=== PATIENT | male | born 1955 | race Caucasian/White ===

== ENCOUNTER → 2021-06-16 | Outpatient (CLI) | payer OTHER ==
[2021-06-16 16:00] LABS: Albumin, Blood 3.1 g/dL (3.4-5.0); Albumin/Globulin Ratio 0.8 (0.8-1.8); Bilirubin, Total 0.5 mg/dL (0.1-1.0); Calcium, Blood 8.4 mg/dL (8.5-10.1); Creatinine, Blood 2.05 mg/dL (0.60-1.20); Globulin, Blood 3.9 g/dL (2.2-4.0); Potassium, Blood 4.1 mmol/L (3.5-5.5)
== END | disposition home or self-care (01) ==
LOC: LAB SHORT 13:31
PROVIDERS: Family Medicine
DX: N18.9 Chronic kidney disease, unspecified (principal)
CPT/HCPCS: 80053

== ENCOUNTER 2021-12-16 09:51 | Inpatient (IN) | payer OTHER ==
[~2021-12-16] VITALS: Ht 188 cm; Wt 150.2 kg
[2021-12-16 10:26] LABS: BASOPHILS ABSOLUTE AUTO 0.03 K/mm3 (0.00-0.23); BASOPHILS PERCENT AUTO 0 % (0-2); EOSINOPHILS ABSOLUTE AUTO 0.03 K/mm3 (0.00-0.68); EOSINOPHILS PERCENT AUTO 0 % (0-6); Hematocrit 45.7 % (37.0-53.0); Hemoglobin 13.2 g/dL (13.5-17.5); IMMATURE GRAN ABSOLUTE AUTO 0.06 K/mm3 (0.00-0.10); IMMATURE GRAN PERCENT AUTO 0 % (0-1); LYMPHOCYTES ABSOLUTE AUTO 0.84 K/mm3 (0.84-5.20); LYMPHOCYTES PERCENT AUTO 5 % (21-46); MONOCYTES ABSOLUTE AUTO 1.09 K/mm3 (0.16-1.47); MONOCYTES PERCENT AUTO 7 % (4-13); Mean Corpuscular HGB 26.9 pg (26.0-34.0); Mean Corpuscular HGB Conc 28.9 g/dL (31.5-36.5); Mean Corpuscular Volume 93 fL (80-100); Mean Platelet Volume 10.7 fL (9.1-12.4); NEUTROPHILS ABSOLUTE AUTO 14.79 K/mm3 (1.96-9.15); NEUTROPHILS PERCENT AUTO 88 % (41-73); Platelet Count 247 K/mm3 (150-400); RDW Standard Deviation 62.1 fL (35.1-46.3); White Blood Cell Count 16.84 K/mm3 (4.00-11.30)
[2021-12-16 10:41] LABS: Albumin, Blood 3.5 g/dL (3.4-5.0); Albumin/Globulin Ratio 0.8 (0.8-1.8); Bilirubin, Total 0.8 mg/dL (0.1-1.0); Bun/Creatinine Ratio 19.3 (12.0-20.0); Creatinine, Blood 2.12 mg/dL (0.60-1.20); Globulin, Blood 4.5 g/dL (2.2-4.0); Potassium, Blood 5.8 mmol/L (3.5-5.5)
[2021-12-16] MEDS ORDERED: Amiodarone HCl200 MG PO (12:50)
[2021-12-16] MEDS ORDERED: ATORVASTATIN CA80 M1 PO (12:52)
[2021-12-16] MEDS ORDERED: Celexa20 MG PO (12:53)
[2021-12-16] MEDS ORDERED: EPLE25 PO (12:54)
[2021-12-16] MEDS ORDERED: CLOP75 PO (12:55)
[2021-12-16] MEDS ORDERED: ELIQUIS5 M3 PO (12:56)
[2021-12-16] MEDS ORDERED: METO25 PO (12:57)
[2021-12-16] MEDS ORDERED: ISODIN20 PO (12:58)
[2021-12-16] MEDS ORDERED: JARDIANCE10 MG PO (12:58)
[2021-12-16] MEDS ORDERED: HYDRA25 PO (12:59)
[2021-12-16] MEDS ORDERED: POTCHL20ER PO (13:01)
[2021-12-16] MEDS ORDERED: TORSE20 PO (13:35)
--- NOTE | 2021-12-16 17:44 | NUR ---
PT PASSED BEDSIDE SWALLOW EVAL. HE WAS ABLE TO BOTH DRINK WATER AND EAT SPOONFULS OF APPLESAUCE WITHOUT ISSUES, HE DOES HOWEVER HAVE A MUFFLED ABLMOST SLURRING VOICE WHEN HE SPEAKS AND HAVE SAID THAT HES HAD TROUBLE WITH CHOKING AT HOME. PT MEAL WILL BE ORDERED PUREE UNTIL HE CAN HAVE A SWALLOW EVAL
--- NOTE | 2021-12-16 17:55 | NUR ---
SHIFT SUMMARY PT IS RESTING IN BED SITTING ALL THE WAY UPRIGHT/ WE ARE TRYING TO GET THE PT A BARIATRIC BED SO THAT HE CAN BE MORE COMFORTABLE. PT IS ON BIPAP SATTING AT 89%. HE HAS BEEN PLACED ON PUREED DIET UNTIL HE CAN BE EVALUATED BY ST BUT HE PASSED A BEDSIDE SWALLOW EVAL. HE HAS COMPLAINED OF LOWER BACK PAIN AND WAS MEDICATED PER EMAR. WILL CONTINUE TO MONITOR
[2021-12-16 22:05] LABS: Bun/Creatinine Ratio 17.1 (12.0-20.0); Calcium, Blood 8.4 mg/dL (8.5-10.1); Creatinine, Blood 2.34 mg/dL (0.60-1.20); Potassium, Blood 4.6 mmol/L (3.5-5.5)
[2021-12-17 04:47] LABS: BASOPHILS ABSOLUTE AUTO 0.04 K/mm3 (0.00-0.23); BASOPHILS PERCENT AUTO 0 % (0-2); EOSINOPHILS ABSOLUTE AUTO 0.05 K/mm3 (0.00-0.68); EOSINOPHILS PERCENT AUTO 0 % (0-6); Hemoglobin 12.3 g/dL (13.5-17.5); IMMATURE GRAN ABSOLUTE AUTO 0.09 K/mm3 (0.00-0.10); IMMATURE GRAN PERCENT AUTO 1 % (0-1); LYMPHOCYTES ABSOLUTE AUTO 1.13 K/mm3 (0.84-5.20); LYMPHOCYTES PERCENT AUTO 7 % (21-46); MONOCYTES ABSOLUTE AUTO 1.48 K/mm3 (0.16-1.47); MONOCYTES PERCENT AUTO 9 % (4-13); Mean Corpuscular HGB 27.2 pg (26.0-34.0); Mean Corpuscular HGB Conc 28.6 g/dL (31.5-36.5); Mean Corpuscular Volume 95 fL (80-100); Mean Platelet Volume 10.9 fL (9.1-12.4); NEUTROPHILS ABSOLUTE AUTO 13.75 K/mm3 (1.96-9.15); NEUTROPHILS PERCENT AUTO 83 % (41-73); Platelet Count 201 K/mm3 (150-400); RDW Coefficient Variation 17.5 % (11.7-14.2); RDW Standard Deviation 61.1 fL (35.1-46.3); Red Blood Cell Count 4.53 M/mm3 (4.30-5.90); White Blood Cell Count 16.54 K/mm3 (4.00-11.30)
[2021-12-17 05:08] LABS: Bun/Creatinine Ratio 18.9 (12.0-20.0); Calcium, Blood 8.7 mg/dL (8.5-10.1); Creatinine, Blood 2.33 mg/dL (0.60-1.20); Potassium, Blood 4.4 mmol/L (3.5-5.5)
--- NOTE | 2021-12-17 06:32 | NUR ---
SHIFT SUMMARY: PATIENT REPORTS CHRONIC BACK AND R RIB PAIN. TRAMADOL IS EFFECTIVE FOR PAIN CONTROL. UP TO THE BATHROON WITH ASSIST OF 1 AND FWW. GENERALIZED WEAKNESS OBSERVED. PATIENT REFUSES TO PUT HOSPITAL GOWNED ON AND REMAINS IN STREET CLOTHES. 02 IS AT 6L NC WHILE AWAKE. CPAP WAS USED FOR A SHORT TIME WITH A 5L BLEED IN, CONT. PULSE OX IS ON. MAINTAINING SATS BETWEEN 93-89%. UP TO 7L WITH ACTIVITY. PATIENT IS CONTINUOSLY PULLING TELI OFF, NO EVENTS REPORTED. DR MENON IS NOTIFIED AND ORDER TO DC TELI IS OBTAINED.
--- NOTE | 2021-12-17 18:10 | NUR ---
SHIFT SUMMARY PT IS SLEEPING WHILE WEARING HIS CPAP. HE HAS NOT TOLERATED IT WELL WITH IS OFF. HE IS NOT ABLE TO MAINTAIN HIS OWN O2 SATS ON NASAL CANULA ALONE AND HIS MENTATION HAS CHANGED GREATLY WITH IT OFFF. HE IS CONFUSED, SLOW TO PROCESS, AND DIFFICULTE TO AROUND AND HAD BEEN FALLING ASLEEP AT THE BEDSIDE. HE HAS NOT EATEN LUNCH OR DINNER TODAY HE GETS VERY CONFUSED WHEN HE TAKES OFF HIS BIPAP. HE IS CURRENTLY SATTING 93%. HE RECIEVED A FLUID BOLUS THIS AFTERNOON OF 250 TO HELP WITH A SOFT BP. SEVERAL DOSES OF HYDRALAZINE HELD THIS SHIFT. DR INSTRUCT TO NOT LET PT REMOVE HIS BIPAP TONIGHT. ECHO CARDIOGRAM SCHEDULED. DR WILL DETERMINE MORE ABOUT PTS STATUS WITH THOSE RESULTS.WILL CONTINUE TO MONITOR.
[2021-12-17 22:48] LABS: PCO2 Venous 87.8 mmHg (38-42); pH Blood Venous 7.19 (7.34-7.37)
[2021-12-17 22:49] LABS: Base Excess Venous 5.7 mmol/L; Bicarbonate Venous 26.8 mmol/L (24.0-30.0); PO2 Venous 53.5 mmHg (38-42)
--- NOTE | 2021-12-17 23:25 | NUR ---
MENTATION CHANGES: PATIENT IS LETHARGIC TONIGHT. A&O TO SELF ONLY. ON BIPAP WITH 7L BLEED IN BUT RESTLESS WITH LEAK ALARMS. REMOVED BIPAP TO SPEAK WITH AND SWITCHED TO NC @ 7L, SAT IS 93%. MORTGAGE FUNDER MASON COLE IS NOTIFIED AND ORDER FOR STAT VENOUS ABG. CRITICAL PH OF 7.19 AND C02 AT 87.8 IS CALLED TO MASON COLE. ORDER TO TRANSFER PT TO PCU IS OBTAINED.
--- NOTE | 2021-12-17 23:58 | NUR ---
TRANSFER: REPORT WAS CALLED TO CLINICAL RESEARCH DIRECTORJOE FOOTE AND PATIENT WAS TRANFERED TO PCU 1, WITH RT ESCORT.
--- NOTE | 2021-12-18 01:33 | NUR ---
ASSUMPTION OF CARE: ASSUMED CARE FROM MARIYA ON MED FLOOR AT 2355. PATIENT ARRIVED IN AIR BED AND BEDS WERE SWITCHED WITH MED FLOOR. PATIENT A&O X1. RT AT BEDSIDE FOR BIPAP SETTINGS. PATIENT WEAK AND LETHARGIC. MEDS GIVEN PER EMAR. PATIENT ASLEEP NOW WITH 02 SATS >90%.
[2021-12-18 03:02] LABS: Base Excess Venous 6.1 mmol/L; Bicarbonate Venous 27.2 mmol/L (24.0-30.0); PCO2 Venous 77.4 mmHg (38-42); PO2 Venous 38.6 mmHg (38-42)
[2021-12-18 03:03] LABS: pH Blood Venous 7.24 (7.34-7.37)
[2021-12-18 07:02] LABS: Source, Urine Foley catheter
[2021-12-18 07:09] LABS: Appearance, Urine Clear (Clear); Bilirubin, Urine Neg (Neg); Blood, Urine 1+ (Neg); Color, Urine Yellow (P-Yellow); Glucose Qualitative, Urine 3+ (Neg); Ketones, Urine Neg (Neg); Leukocyte Esterase, Urine Neg (Neg); Nitrite, Urine Neg (Neg); Protein, Urine 1+ (Neg); Urobilinogen, Urine NORM (Normal)
--- NOTE | 2021-12-18 07:16 | NUR ---
SHIFT SUMMARY: PATIENT VSS UNTIL 0500 WHEN PATIENT PULLED BIPAP MASK OFF. PATIENT ANXIOUS AT 0600 - SECURED XANAX ORDER AND PLACED STORY WHICH RELIEVED HIS ANXIOUSNESS. MAINTAINED O2 SATS >92% T/O SHIFT WITH BIPAP IN PLACE AT 7-9L BLEED IN. PATIENT HAS REDNESS ON COCCYX, WAS GIVEN BEDBATH WHEN BED LINENS CHANGED AND ATTENDS PLACED. PATIENT CANNOT FOLLOW DIRECTIONS AND IS STILL VERY CONFUSED AND UNSTEADY ON FEET. REPORT GIVEN TO BERKLEY SALEH RN.
[2021-12-18 07:20] LABS: White Blood Cells, Urine 0-2 /hpf (0-5)
[2021-12-18 07:21] LABS: Bacteria Rare /hpf; Hyaline Casts 0-2 /lpf (0-2); Squamous Epithelial Cells Rare /hpf (Few)
[2021-12-18 08:12] LABS: Base Excess Venous 2.6 mmol/L; Bicarbonate Venous 25.2 mmol/L (24.0-30.0); PCO2 Venous 69.1 mmHg (38-42); PO2 Venous 62.1 mmHg (38-42); pH Blood Venous 7.24 (7.34-7.37)
[2021-12-18 08:55] LABS: BASOPHILS ABSOLUTE AUTO 0.01 K/mm3 (0.00-0.23); BASOPHILS PERCENT AUTO 0 % (0-2); EOSINOPHILS PERCENT AUTO 0 % (0-6); Hematocrit 40.6 % (37.0-53.0); Hemoglobin 11.8 g/dL (13.5-17.5); IMMATURE GRAN ABSOLUTE AUTO 0.09 K/mm3 (0.00-0.10); IMMATURE GRAN PERCENT AUTO 1 % (0-1); LYMPHOCYTES ABSOLUTE AUTO 0.22 K/mm3 (0.84-5.20); LYMPHOCYTES PERCENT AUTO 3 % (21-46); MONOCYTES ABSOLUTE AUTO 0.11 K/mm3 (0.16-1.47); MONOCYTES PERCENT AUTO 1 % (4-13); Mean Corpuscular HGB 27.4 pg (26.0-34.0); Mean Corpuscular HGB Conc 29.1 g/dL (31.5-36.5); Mean Corpuscular Volume 94 fL (80-100); Mean Platelet Volume 10.8 fL (9.1-12.4); NEUTROPHILS ABSOLUTE AUTO 7.73 K/mm3 (1.96-9.15); NEUTROPHILS PERCENT AUTO 95 % (41-73); Platelet Count 183 K/mm3 (150-400); RDW Coefficient Variation 17.2 % (11.7-14.2); Red Blood Cell Count 4.31 M/mm3 (4.30-5.90); White Blood Cell Count 8.16 K/mm3 (4.00-11.30)
[2021-12-18 09:20] LABS: Alanine Aminotransfer (ALT/SGP 49 U/L (12-78); Albumin, Blood 3.1 g/dL (3.4-5.0); Albumin/Globulin Ratio 0.8 (0.8-1.8); Alk Phos 80 U/L (50-136); Anion Gap 1 mmol/L (6-16); Aspartate Aminotrans (AST/SGOT 35 U/L (12-37); Bilirubin, Total 0.6 mg/dL (0.1-1.0); Blood Urea Nitrogen 56 mg/dL (8-24); Bun/Creatinine Ratio 22.8 (12.0-20.0); CO2, Blood 31 mmol/L (21-32); Calcium, Blood 8.8 mg/dL (8.5-10.1); Chloride, Blood 99 mmol/L (98-108); Creatinine, Blood 2.46 mg/dL (0.60-1.20); Glomerular Filtration Rate 26 (60-); Glucose, Blood 233 mg/dL (70-99); Phosphorus, Blood 6.1 mg/dL (2.5-4.9); Potassium, Blood 4.7 mmol/L (3.5-5.5); Sodium, Blood 131 mmol/L (136-145); Total Protein, Blood 7.1 g/dL (6.4-8.2)
--- NOTE | 2021-12-18 11:09 | NUR ---
AM NOTE: PATIENT ALERT TO SELF. STATES HE IS IN [place] AND IS UNABLE TO TELL THIS RN WHY HE IS HERE. OVERALL WEAK. NOT ABLE TO HOLD ARMS UP, VERY SLEEPY. REPEATING THE NUMBERS "96.81" THIS AM. PERRLA. INTERMITTENT WITH FOLLOWING COMMANDS. TELE SHOWING PACED RHYTHM WITH HR 80'S. DENIES CHEST PAIN/PRESSURE. PACER TO LEFT CHEST WALL. VITAL SIGNS STABLE. ON BIPAP THIS AM SETTINGS - 18/8 WITH 8L BLEEDING IN SATING MID 90'S. SPOKE WITH DR. SEAMAN REGARDING BIPAP AND VBG RESULTS. RT IN TO ADJUST BIPAP. PLAN TO RECHECK VBG LATER THIS AFTERNOON PER DR. SEAMAN WELL MONITOR OTHER LABS. OFF BIPAP AND ON 4L 02 BASELINE FOR MORN MEDS AND SPEECH THERAPY. TO SLEEPY TO EAT BREAKFAST. DENIES ABDOMINAL PAIN/NAUSEA. STORY CATH IN PLACE DRAINING KATIE COLORED URINE TO GRAVITY. ATTENDS IN PLACE. ORAL CARE Q4 AND Q2 TURNING. SLEEPING ON AND OFF. ANTIBIOTICS INFUSED THIS AM. CALL LIGHT IN REACH. WILL CONTINUE TO MONITOR.
[2021-12-18 12:05] LABS: PCO2 Arterial 67.1 mmHg (35-45); PO2 Arterial 60.2 mmHg (80-100); pH Blood Arterial 7.27 (7.35-7.45)
--- NOTE | 2021-12-18 12:10 | NUR ---
UPDATE: CALL PLACED TO DR. SEAMAN TO UPDATE ON ABG RESULTS. SPOKE WITH RT. NO ADJUSTMENTS TO BIPAP AT THIS TIME. O2 BLEED IN BROUGHT DOWN FROM 8L TO 4L AT THIS TIME SATING LOW 90'S. PATIENT MORE ALERT AND AWAKE ABLE TO PARTICIPATE IN SPEECH THERAPY AND TALK WITH AT BEDSIDE. PATIENT FIXATED ON APPOINTMENTS HE STATES HE HAS TOMORROW. CALL PLACED TO COAT TAILOR, ECHO DONE YESTERDAY AND RESULTS PENDING. SPEECH THERAPY ORDERS - REG DIET WITH THIN LIQUIDS AND FEEDER AT THIS TIME DUE TO WEAKNESS. WILL CONTINUE TO MONITOR.
--- NOTE | 2021-12-18 13:37 | NUR ---
UPDATE: CALL PLACED TO DR. HERRERA TO UPDATE ON BNP RESULTS. NO NEW ORDERS AT THIS TIME. PATIENT REMAINS ASLEEP. VITAL SIGNS STABLE. WILL CONTINUE TO MONITOR.
[2021-12-18 17:26] LABS: Base Excess Venous 6.5 mmol/L; Bicarbonate Venous 28.7 mmol/L (24.0-30.0); pH Blood Venous 7.36 (7.34-7.37)
[2021-12-18 17:27] LABS: PCO2 Venous 57 mmHg (38-42); PO2 Venous 39 mmHg (38-42)
--- NOTE | 2021-12-18 17:56 | NUR ---
SHIFT SUMMARY: NO CHANGES IN NEURO. PATIENT REMAINS ALERT TO SELF BUT NOT AWARE OF SITUATION. IN TO VISIT. STATES THIS HAS HAPPENED MANY TIMES BEFORE. VITALS SIGNS REMAIN STABLE. NO CHANGES IN TELE. HR REMAINS 80'S. BIPAP SETTING INCREASED TO 24/10 AND 5-8L BLEED IN. ADJUSTING OXYGEN TO KEEP SATS IN LOW 90'S. TOLERATING BIPAP. SLEEPING ON AND OFF. ABLE TO WAKE FOR MEALS. ALERT ENOUGH TO EAT A FEW BITES OF BOTH LUNCH AND DINNER. FLUID RESTRICTION AT 1500ML. CT OF CHEST COMPLETED AND RESULTS REVIEWED WITH DR. HERRERA. PLAN FOR CT OF PELVIS ON 12/19. VBG RESULTS IMPROVING THROUGHOUT SHIFT. STORY CATH REMAINS IN PLACE DRAINING YELLOW URINE TO GRAVITY. NO BM THIS SHIFT. ATTENDS IN PLACE. Q2 TURNING AND NEEDED. PATIENT COMPLAINS OF GENERAL SORNESS AND MOANS AT TIMES WHEN MOVING. WILL CONTINUE TO MONITOR AND REPORT OFF TO ONCOMING RN.
[2021-12-19 04:17] LABS: BASOPHILS PERCENT AUTO 0 % (0-2); EOSINOPHILS PERCENT AUTO 0 % (0-6); Hematocrit 36.5 % (37.0-53.0); Hemoglobin 11.1 g/dL (13.5-17.5); IMMATURE GRAN ABSOLUTE AUTO 0.04 K/mm3 (0.00-0.10); IMMATURE GRAN PERCENT AUTO 1 % (0-1); LYMPHOCYTES ABSOLUTE AUTO 0.29 K/mm3 (0.84-5.20); LYMPHOCYTES PERCENT AUTO 4 % (21-46); MONOCYTES ABSOLUTE AUTO 0.26 K/mm3 (0.16-1.47); MONOCYTES PERCENT AUTO 4 % (4-13); Mean Corpuscular HGB 27.3 pg (26.0-34.0); Mean Corpuscular HGB Conc 30.4 g/dL (31.5-36.5); Mean Corpuscular Volume 90 fL (80-100); Mean Platelet Volume 10.9 fL (9.1-12.4); NEUTROPHILS ABSOLUTE AUTO 6.77 K/mm3 (1.96-9.15); NEUTROPHILS PERCENT AUTO 92 % (41-73); Platelet Count 202 K/mm3 (150-400); RDW Coefficient Variation 17.2 % (11.7-14.2); RDW Standard Deviation 55.9 fL (35.1-46.3); Red Blood Cell Count 4.07 M/mm3 (4.30-5.90); White Blood Cell Count 7.36 K/mm3 (4.00-11.30)
[2021-12-19 04:37] LABS: Bun/Creatinine Ratio 27.2 (12.0-20.0); Calcium, Blood 8.4 mg/dL (8.5-10.1); Creatinine, Blood 2.32 mg/dL (0.60-1.20); Potassium, Blood 4.2 mmol/L (3.5-5.5)
[2021-12-19 04:48] LABS: Base Excess Venous 6.6 mmol/L; Bicarbonate Venous 28.9 mmol/L (24.0-30.0); PCO2 Venous 55.7 mmHg (38-42); pH Blood Venous 7.37 (7.34-7.37)
--- NOTE | 2021-12-19 07:46 | NUR ---
Pt had taken his oxygen off. Spo2 81%. He is alert, oriented to person, following directions, and answering questions pleasantly. He states he is not sure where he is, but guesses that it is a hospital. States that the year is 2001, and the month is November. He said that he wears 4 l/min of oxygen at home, all the time. Replaced his oxygen and his spo2 improved to 94%. He is talking to himself, lying in bed with HOB elevated as much as possible, eyes closed. I asked if he was in pain, and he said he's having a little bit of pain, in his neck and hand and back.
--- NOTE | 2021-12-19 08:19 | NUR ---
Pt was lifted with ceiling lift to recliner chair. Manisha with speech therapy here to see the patient.
--- NOTE | 2021-12-19 09:47 | NUR ---
Sitting up in chair, pt swallowed small tablets one by one with water, but found it easier to take pills with applesauce. Remaining small tablets and larger pills were given with applesauce.
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
--- NOTE | 2021-12-19 13:11 | NUR ---
Pt falling asleep in his recliner, sitting up. CPAP put on and chair put in reclined position. His SO Nan then arrived, and so he was put back on the nasal cannula as he was then awake and trying to talk with her.
--- NOTE | 2021-12-19 15:00 | NUR ---
Pt worked with physical therapist. Oxygen requirements up to 6 l/min during walking with his prosthesis on, and use of FWW in order to keep spo2 greater than 87%. O2 delivery decreased to 4 l/min afterwards, when pt was back in bed and resting. Now on cpap, closing eyes and says he wants to take a nap.
--- NOTE | 2021-12-19 17:01 | NUR ---
Pt awakened spontaneously, asked to be taken off of CPAP and to sit up in bed. Asssisted to sitting up position.
--- NOTE | 2021-12-19 17:45 | NUR ---
Pt finished eating his dinner. He is very clear and appropriate in conversation, much more so than this morning. He slept this afternoon while wearing the CPAP, and after awakening was clear and mentating very well. Watching a documentary TV show right now and explaining clearly to me what is going on.
--- NOTE | 2021-12-20 05:57 | NUR ---
FOREIGN TRADE TEACHER SUMMARY PT HAS REMAINED ALERT AND ORIENTED THIS SHIFT COMMUNICATING APPROPRIATELY WITH STAFF. PT SLEPT COMFORTABLY FOR MAJORITY OF THE SHIFT. VSS AND AFEBRILE. O2 SATS >90% ON BIPAP W 4L BEED IN. NO NEW CHANGES THIS SHIFT. WILL REPORT TO ONCOMING RN.
--- NOTE | 2021-12-20 08:01 | NUR ---
Pt awake, taken off of CPAP. Line draw for renal panel from [facility]. Pt put on 4 l/min n.c. delivery. Given call light/TV control. He was also given his dentures to put in before breakfast. Insulin coverage given per orders.
[2021-12-20 08:22] LABS: Albumin, Blood 2.8 g/dL (3.4-5.0); Anion Gap 1 mmol/L (6-16); Blood Urea Nitrogen 68 mg/dL (8-24); Bun/Creatinine Ratio 34.7 (12.0-20.0); CO2, Blood 36 mmol/L (21-32); Calcium, Blood 8.5 mg/dL (8.5-10.1); Chloride, Blood 102 mmol/L (98-108); Creatinine, Blood 1.96 mg/dL (0.60-1.20); Glomerular Filtration Rate 34 (60-); Glucose, Blood 290 mg/dL (70-99); Potassium, Blood 4.1 mmol/L (3.5-5.5); Sodium, Blood 139 mmol/L (136-145)
[2021-12-20 08:24] LABS: Phosphorus, Blood 2.8 mg/dL (2.5-4.9)
--- NOTE | 2021-12-20 11:34 | NUR ---
Spiritual care visit conducted. Patient is sitting on a chair and alert. Pt's spouse, Nan, is present. We discuss pt's multiple medical issues, their recent move to [place] and their unique family dynamics. Pt shares about his near experiences and the vision that he saw during one of the those times. We discuss his belief in a higher power and his disdain for organized nondenominational. Pt states that he finds his strength and energy from Nan and motivation to fight for his health in Nan and his 7 y/o son. I reinforce their helpful attitudes and perspective, and provide therapeutic lsitening, spiritual guidance and prayer. Patient and Nan responds well and show signs of an elevated mood and appreciation for what they have together. I will continue to remain available to patient and family.
--- NOTE | 2021-12-20 13:18 | NUR ---
Assisted back into bed with OT and RN.
--- NOTE | 2021-12-20 14:20 | NUR ---
Pt sitting up in bed, states that he hasn't seen the Physical therapist yet today, just the occupational therapist.
--- NOTE | 2021-12-20 17:13 | NUR ---
Juan has been alert, oriented and appropriate in conversation, cooperative with care, and able to make his needs known. Appetite very good; laments the 1500 fluid restriction which he says that he has had for "years" but doesn't follow it at home. His significant other Nan confirms this. Ambulatory twice today from bed to the doorway and then to recliner chair, using the geriwalker and with one staff member assisting with gait belt to stand. He tolerated this fairly well. No cough. Wearing his oxygen 4 l/min, which he says is his home dose. No dysnea with activity. Weakness is noted. Nan says he has to be able to walk or else she cannot take him home, as she is not able to care for him if he is not ambulatory. They have a 7 year old son at home.
--- NOTE | 2021-12-20 17:25 | NUR ---
Bladder training intiated, with view to d'c the Vargas in the morning. Pt states that he normally doesn't have any difficulty voiding.
[2021-12-21 04:43] LABS: Calcium, Blood 8.6 mg/dL (8.5-10.1); Creatinine, Blood 1.82 mg/dL (0.60-1.20); Potassium, Blood 4.4 mmol/L (3.5-5.5)
--- NOTE | 2021-12-21 05:53 | NUR ---
SHIFT SUMMARY NO ACUTE CHAGNES THIS SHIFT. PT PLEASANT, A&OX4, SEE SHIFT ASSESSMENT. STORY CATHETER CLAMPED, BLADDER TRAINING. PT ABLE TO NOTIFY WHEN FEELS FULL TO DRAIN. PT UP TO BSC TO HAVE ONE VERY LARGE PASTY BROWN BM THIS AM. PT UP TO CHAIR AT START OF SHIFT AND NOW IN MORNING W/ FWW, GAITBELT AND PROSTHESIS. PT ADHERED TO FR ALLOTED FOR SOLAR PANEL TECHNICIAN. PT WORE CPAP WHILE SLEEPING, SLEPT OFF AND ON T/O NIGHT. CALL LIGHT IN REACH.
[2021-12-21 13:18] LABS: Influenza A, PCR NEGATIVE (NEGATIVE); Influenza B, PCR NEGATIVE (NEGATIVE); Resp Syncytial Virus, PCR NEGATIVE (NEGATIVE); SARS-Cov-2 (COVID-19) PCR, MMC NEGATIVE (NEGATIVE)
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
[2021-12-21] MEDS ORDERED: DELTASONE20 MG PO (15:39)
[2021-12-21] MEDS ORDERED: VISBIOME 112.51 EACH PO (15:39)
--- NOTE | 2021-12-21 17:36 | NUR ---
SHIFT NOTE PT A/O X3, ANSWERING QUESTIONS APPROPRIATELY IN FULL SENTENCES. PT SBA WITH WALKER TO COMMODE. PT [facility]OM [facility], WAS UNABLE TO D/C TO FACILITY TODAY, LIKELY WILL TRANSFER TOMORROW. VSS. REPORTS GOOD IMPROVEMENT IN WORK OF BREATHING. NADN. PT HAS BEEN IN ROOM WATHCING TV T/O THE DAY. PT IS ON A 1500ML FLUID RESTRICTION.
--- NOTE | 2021-12-21 18:35 | NUR ---
REPORT CALLED TO DEVORA DIAZ AT [facility].
== END 2021-12-21 18:55 | DRG 871 ==
LOC: ER 09:51 → MEDS 12:26 → PCU 12-17 23:52
PROVIDERS: Emergency Medicine; Family Medicine; Internal Medicine; Nurse Practitioner Acute Care; ADMIT Internal Medicine
PROC: 3E03329 Introduction of Other Anti-infective into Peripheral Vein, Percutaneous Approach (ICD-10-PCS; principal; 2021-12-16)
PROC: 5A09357 Assistance with Respiratory Ventilation, Less than 24 Consecutive Hours, Continuous Positive Airway Pressure (ICD-10-PCS; 2021-12-16)
DX: A41.9 Sepsis, unspecified organism (principal); J18.9 Pneumonia, unspecified organism; J96.21 Acute and chronic respiratory failure with hypoxia; J96.22 Acute and chronic respiratory failure with hypercapnia; G92.8 Other toxic encephalopathy; N17.9 Acute kidney failure, unspecified; J44.0 Chronic obstructive pulmonary disease with (acute) lower respiratory infection; I13.0 Hypertensive heart and chronic kidney disease with heart failure and stage 1 through stage 4 chronic kidney disease, or unspecified chronic kidney disease; E87.2 Acidosis; Z68.41 Body mass index [BMI] 40.0-44.9, adult; R16.0 Hepatomegaly, not elsewhere classified; Z20.822 Contact with and (suspected) exposure to COVID-19; I25.10 Atherosclerotic heart disease of native coronary artery without angina pectoris; E66.01 Morbid (severe) obesity due to excess calories; I48.91 Unspecified atrial fibrillation; J45.909 Unspecified asthma, uncomplicated; I50.9 Heart failure, unspecified; R65.20 Severe sepsis without septic shock; E87.5 Hyperkalemia; G47.33 Obstructive sleep apnea (adult) (pediatric); E11.22 Type 2 diabetes mellitus with diabetic chronic kidney disease; N18.32 Chronic kidney disease, stage 3b; Z89.511 Acquired absence of right leg below knee; Z89.512 Acquired absence of left leg below knee; Z95.810 Presence of automatic (implantable) cardiac defibrillator; Z89.612 Acquired absence of left leg above knee; Z95.1 Presence of aortocoronary bypass graft; Z88.1 Allergy status to other antibiotic agents; Z88.8 Allergy status to other drugs, medicaments and biological substances; Z88.5 Allergy status to narcotic agent; Z87.891 Personal history of nicotine dependence; Z79.899 Other long term (current) drug therapy; Z99.81 Dependence on supplemental oxygen
CPT/HCPCS: 0241U; 36415; 36600; 71045; 71250; 74176; 80048; 80053; 80069; 81001; 82803; 82947; 83036; 83605; 83880; 84100; 84145; 84484; 85025; 87040; 87070; 87205; 92526; 92610; 93005; 93010; 94640; 94660; 94664; 94760; 94762; 96365; 96366; 96375; 97110; 97116; 97162; 97166; 97530; 97535; 99285-25; A9270; C8929; J0456; J0696; J1940; J2060; J2930; J7030; J7050; Q9957

== ENCOUNTER 2022-01-26 10:48 | Inpatient (IN) | payer OTHER ==
[~2022-01-26] VITALS: Ht 188 cm; Wt 145.6 kg
[~2022-01-26 10:48] MED LIST: ATORVASTATIN CA80 M1 PO; Amiodarone HCl200 MG PO; CLOP75 PO; Celexa20 MG PO; DELTASONE20 MG PO; ELIQUIS5 M3 PO; EPLE25 PO; HYDRA25 PO; ISODIN20 PO; JARDIANCE10 MG PO; METO25 PO; POTCHL20ER PO; TORSE20 PO; VISBIOME 112.51 EACH PO
[2022-01-26] MEDS ORDERED: ALEN70 PO (11:08)
[2022-01-26] MEDS ORDERED: LEVOTHYROXINE150 MC7 PO (11:09)
[2022-01-26] MEDS ORDERED: NEURONTIN300 MG PO (11:09)
[2022-01-26 11:19] LABS: BASOPHILS ABSOLUTE AUTO 0.02 K/mm3 (0.00-0.23); BASOPHILS PERCENT AUTO 0 % (0-2); EOSINOPHILS ABSOLUTE AUTO 0.01 K/mm3 (0.00-0.68); EOSINOPHILS PERCENT AUTO 0 % (0-6); Hematocrit 39.6 % (37.0-53.0); Hemoglobin 11.5 g/dL (13.5-17.5); IMMATURE GRAN ABSOLUTE AUTO 0.06 K/mm3 (0.00-0.10); IMMATURE GRAN PERCENT AUTO 0 % (0-1); LYMPHOCYTES PERCENT AUTO 3 % (21-46); MONOCYTES ABSOLUTE AUTO 1.23 K/mm3 (0.16-1.47); MONOCYTES PERCENT AUTO 8 % (4-13); Mean Corpuscular HGB 26.6 pg (26.0-34.0); Mean Corpuscular Volume 92 fL (80-100); NEUTROPHILS ABSOLUTE AUTO 14.64 K/mm3 (1.96-9.15); NEUTROPHILS PERCENT AUTO 89 % (41-73); Platelet Count 266 K/mm3 (150-400); RDW Coefficient Variation 17.3 % (11.7-14.2); RDW Standard Deviation 58.3 fL (35.1-46.3); Red Blood Cell Count 4.32 M/mm3 (4.30-5.90); White Blood Cell Count 16.46 K/mm3 (4.00-11.30)
[2022-01-26 11:39] LABS: Albumin, Blood 2.9 g/dL (3.4-5.0); Albumin/Globulin Ratio 0.7 (0.8-1.8); Bilirubin, Total 0.7 mg/dL (0.1-1.0); Bun/Creatinine Ratio 22.1 (12.0-20.0); Calcium, Blood 8.9 mg/dL (8.5-10.1); Creatinine, Blood 2.35 mg/dL (0.60-1.20); Globulin, Blood 3.9 g/dL (2.2-4.0); Potassium, Blood 4.5 mmol/L (3.5-5.5); Total Protein, Blood 6.8 g/dL (6.4-8.2)
[2022-01-26 11:56] LABS: Source, Urine Straight Cath
[2022-01-26 12:09] LABS: Appearance, Urine Clear (Clear); Bilirubin, Urine Neg (Neg); Blood, Urine 3+ (Neg); Color, Urine Amber (P-Yellow); Glucose Qualitative, Urine Neg (Neg); Ketones, Urine Neg (Neg); Leukocyte Esterase, Urine 1+ (Neg); Nitrite, Urine Neg (Neg); Protein, Urine 1+ (Neg); Urobilinogen, Urine NORM (Normal)
[2022-01-26 12:33] LABS: Red Blood Cells, Urine 25-50 /hpf (0-2); White Blood Cells, Urine 0-2 /hpf (0-5)
[2022-01-26 12:34] LABS: Bacteria Few /hpf; Squamous Epithelial Cells Rare /hpf (Few)
[2022-01-26 13:52] LABS: Influenza A, PCR NEGATIVE (NEGATIVE); Influenza B, PCR NEGATIVE (NEGATIVE); Resp Syncytial Virus, PCR NEGATIVE (NEGATIVE); SARS-Cov-2 (COVID-19) PCR, MMC NEGATIVE (NEGATIVE)
[2022-01-27 05:34] LABS: BASOPHILS ABSOLUTE AUTO 0.02 K/mm3 (0.00-0.23); BASOPHILS PERCENT AUTO 0 % (0-2); EOSINOPHILS ABSOLUTE AUTO 0.06 K/mm3 (0.00-0.68); EOSINOPHILS PERCENT AUTO 1 % (0-6); Hematocrit 35.8 % (37.0-53.0); Hemoglobin 10.5 g/dL (13.5-17.5); IMMATURE GRAN ABSOLUTE AUTO 0.06 K/mm3 (0.00-0.10); IMMATURE GRAN PERCENT AUTO 1 % (0-1); LYMPHOCYTES PERCENT AUTO 9 % (21-46); MONOCYTES ABSOLUTE AUTO 1.04 K/mm3 (0.16-1.47); MONOCYTES PERCENT AUTO 9 % (4-13); Mean Corpuscular HGB 26.7 pg (26.0-34.0); Mean Corpuscular HGB Conc 29.3 g/dL (31.5-36.5); Mean Corpuscular Volume 91 fL (80-100); Mean Platelet Volume 10.1 fL (9.1-12.4); NEUTROPHILS ABSOLUTE AUTO 9.32 K/mm3 (1.96-9.15); NEUTROPHILS PERCENT AUTO 81 % (41-73); Platelet Count 211 K/mm3 (150-400); RDW Coefficient Variation 17.2 % (11.7-14.2); RDW Standard Deviation 57.1 fL (35.1-46.3); Red Blood Cell Count 3.93 M/mm3 (4.30-5.90)
[2022-01-27 05:58] LABS: Albumin, Blood 2.5 g/dL (3.4-5.0); Albumin/Globulin Ratio 0.7 (0.8-1.8); Bilirubin, Total 0.5 mg/dL (0.1-1.0); Bun/Creatinine Ratio 22.7 (12.0-20.0); Calcium, Blood 8.3 mg/dL (8.5-10.1); Creatinine, Blood 2.2 mg/dL (0.60-1.20); Globulin, Blood 3.5 g/dL (2.2-4.0); Magnesium, Blood 2.5 mg/dL (1.6-2.4); Potassium, Blood 3.8 mmol/L (3.5-5.5)
--- NOTE | 2022-01-27 05:58 | NUR ---
SHIFT SUMMARY ASSUMED CARE OF PT AT 1900. PT IS A/OX4. HEART SOUNDS REGULAR, PT WAS PACED T/O THE NIGHT. LUNG SOUNDS DIMINISHED. PT WORE 4L NC WHILE AWAKE AND 6L BLEED IN ON HIS BIPAP T/O THE NIGHT. PT C/O R HSOULDER PAIN, MEDICATED PER EMAR WITH LITTLE RELIEF. HOSPITALIST ORDERED FENTYAL WHICH ALSO DID NOT HELP. AFTER SLEEPING PT STATES HIS ARM FEELS BETTER BUT STILL NEEDS PAIN MEDICATION. PT THINKS IT IS STRAIN FROM TRYING TO GET UP OUT OF BED. PT WAS CONTINENT T/O THE NIGHT. PT HAS A BLISTER ON HIS R LEG THAT IS OPEN NOW, DRESSING APPLIED.
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
--- NOTE | 2022-01-27 18:02 | NUR ---
SHIFT NOTE PT WAS MADE MEDICAL WITHOUT TELEMETRY DURING THIS SHIFT. SEE PREVIOUS NOTES ABOUT PAIN MANAGEMENT ISSUES TODAY. PT MOVES INDEPENDANTLY IN BED. NO COUGH NOTED, DENIES CP AND SOB. PT HAS BEEN MEDCIATED T/O THE DAY FOR PAIN PER EMAR. VSS. REMAINS ON 3L O2 VIA NASAL CANNULA. THERE ARE NO FURTHER CHANGES TO CHART DURING THIS SHIFT
--- NOTE | 2022-01-28 05:21 | NUR ---
SHIFT SUMMARY PT ALERT AND ORIENTED. THERE HAVE BEEN NO ACUTE CHANGES T/O THE NIGHT. VITALS ARE STABLE AND PT SATS ABOVE 90% ON 3LNC OR BIPAP WITH 8L O2 BLEED IN. PT REPORTS RIGHT SHOULDER PAIN /. HE IS ABLE TO USE URINAL AT BEDSIDE. CALL LIGHT IS WITHIN REACH.
--- NOTE | 2022-01-28 06:43 | NUR ---
CALLED DR LOTT BECAUSE PT HAD VOIDED 575 THIS SHIFT, WENT FROM 3L TO 6L NC AND LUNG SOUND ARE WET AND FEELING SOB. ORDERS TO DC NS.
--- NOTE | 2022-01-28 12:08 | NUR ---
PT EXHIBITS A MARKED CHANGE IN LEVEL OF CONSCIOUSNESS COMPARED TO START OF SHIFT. PT ON SPEAKERPHONE WITH , PT UNABLE TO CARRY LOGICAL CONVERSATION. PT STATES THAT HE "FEELS OUT OF IT." VSS, REMAINS ON 5 L O2 VIA NASAL CANNULA WITH O2 SATURATION >90%. PT ABLE TO STATE THAT HE IS IN THE HOSPITAL IN [place], HOWEVER IS NOT ABLE TO FOLLOW COMMANDS. PT STATES HE NEEDS TO VOID, BUT UNABLE TO INITIATE MOVEMENTS FOR STANDING AND VOIDING. DR. MAHER NOTIFIED, WCTM.
[2022-01-28 12:49] LABS: Base Excess Venous -1.2 mmol/L; Bicarbonate Venous 22.8 mmol/L (24.0-30.0); PO2 Venous 77.2 mmHg (38-42); pH Blood Venous 7.26 (7.34-7.37)
[2022-01-28 12:57] LABS: Hematocrit 39.6 % (37.0-53.0); Hemoglobin 11.3 g/dL (13.5-17.5)
[2022-01-28 13:04] LABS: Bun/Creatinine Ratio 25.2 (12.0-20.0); Calcium, Blood 8.3 mg/dL (8.5-10.1); Creatinine, Blood 2.1 mg/dL (0.60-1.20); Potassium, Blood 4.4 mmol/L (3.5-5.5)
--- NOTE | 2022-01-28 13:30 | NUR ---
PT RETURNED FROM CT, ASSISTED BY STAFF FROM [facility] TO BED. MARILU RT AT BEDSIDE FOR BIPAP SETTING MANAGEMENT. NO SIGNS OF ACUTE DISTRESS AT THIS TIME. PT'S FAMILY AT BEDSIDE, QUESTIONS ANSWERED TO SATISFACTION.
[2022-01-28 15:45] LABS: Base Excess Venous 0.1 mmol/L; Bicarbonate Venous 23.8 mmol/L (24.0-30.0); PCO2 Venous 60.8 mmHg (38-42); PO2 Venous 84.5 mmHg (38-42)
[2022-01-28 15:46] LABS: pH Blood Venous 7.25 (7.34-7.37)
--- NOTE | 2022-01-28 16:35 | NUR ---
RECEIVED CRITICAL LAB VALUE, pH OF 7.25. DR. MAHER NOTIFIED, DISCUSSED PLANS FOR CONTINUED BIPAP AND ABG CHECK AT 1700. DISCUSSED VBG RESULTS WITH MARILU HOUSTON TO ASSESS BIPAP SETTING OPTIONS.
[2022-01-28 17:42] LABS: PCO2 Arterial 58.8 mmHg (35-45); PO2 Arterial 59.1 mmHg (80-100); pH Blood Arterial 7.28 (7.35-7.45)
--- NOTE | 2022-01-28 17:54 | NUR ---
CRITICAL VALUE NOTIFICATION OF pH 7.[address] MAHER NOTIFIED, ORDERS FOR PULMONOLOGY GIVEN. THIS RN CALLED AND SPOKE WITH DR. CUMMINGS. PT REMAINS ON [facility], [facility].
[2022-01-29 04:19] LABS: Hematocrit 33.1 % (37.0-53.0); Hemoglobin 9.8 g/dL (13.5-17.5); Mean Corpuscular HGB 26.5 pg (26.0-34.0); Mean Corpuscular HGB Conc 29.6 g/dL (31.5-36.5); Mean Corpuscular Volume 90 fL (80-100); Mean Platelet Volume 10.2 fL (9.1-12.4); Platelet Count 214 K/mm3 (150-400); RDW Coefficient Variation 16.8 % (11.7-14.2); RDW Standard Deviation 55.2 fL (35.1-46.3); White Blood Cell Count 5.09 K/mm3 (4.00-11.30)
[2022-01-29 04:38] LABS: Bun/Creatinine Ratio 29.2 (12.0-20.0); Calcium, Blood 8.1 mg/dL (8.5-10.1); Creatinine, Blood 1.95 mg/dL (0.60-1.20); Potassium, Blood 4.6 mmol/L (3.5-5.5)
[2022-01-29 05:40] LABS: Base Excess Venous 0.7 mmol/L; Bicarbonate Venous 24.7 mmol/L (24.0-30.0); PCO2 Venous 47.1 mmHg (38-42); PO2 Venous 60.7 mmHg (38-42); pH Blood Venous 7.36 (7.34-7.37)
--- NOTE | 2022-01-29 06:10 | NUR ---
NO ACUTE EVENTS OVERNIGHT. PT ANSWERS ALL ORIENTATION QUESTIONS APPROPRIATELY, AND STILL HAS SOME MOMENTS OF CONFUSION REQUIRING REORIENTATION TO SURROUNDINGS. PT INITIALLY REFUSED TO WEAR THE BIPAP OVERNIGHT DUE TO NOT LIKELY EITHER MASKS PROVIDED BY THE HOSPITAL. PT'S SPOUSE BROUGHT IN THE PATIENT'S MASK FROM HOME, BUT IT WAS NOT COMPATIBLE WITH THE BIPAP MACHINE IN USE. PT REPEATEDLY REMOVED THE MASK FROM HIS FACE IN THE FIRST TWO HOURS OF USE. EDUCATION WAS PROVIDED REGARDING THE NEED FOR AND THE BENEFIT OF THE BIPAP CONSIDERING THE PATIENT'S MOST RECENT VENOUS AND ARTERIAL BLOOD GAS RESULTS. PT EVENTUALLY AGREED TO KEEP THE MASK IN PLACE OVERNIGHT, AND IT WAS IN PLACE FROM APPROXIMATE 2200 - 0600. SpO2 IS 91 - 94% ON 6 LPM NASAL CANNULA WHEN OFF BIPAP. SpO2 WILL DROP INTO MID TO HIGH 80 PERCENTILE RANGE WITH EXERTION. BIPAP SETTINGS WERE 22/9 AT 40% FiO2. THE VENOUS BLOOD GAS DRAWN THIS MORNING RESULTED OUT IMPROVEMENTS ACROSS ALL MEASUREMENTS. SEE RESULTS IN CHART.
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
--- NOTE | 2022-01-29 15:44 | NUR ---
WOUND CONSULT NOTE HEALTH OUTREACH WORKER EVALUATED AND TREATED PT APPROX. 1320. WOUND ON RIGHT EL COVERED WITH CALCIUM ALGINATE AND MEPILEX DRESSING. ORDERS FROM HEALTH OUTREACH WORKER TO CHANGE DRESSING ON 02/01, CHANGE DRESSING EVERY 3 DAYS. FOLLOW UP REFERAL FOR OUTPATIENT CARE RECCOMENDED TO PATIENT. PHOTOS IN CHART. WILL PASS ON TO NIGHT RN.
--- NOTE | 2022-01-29 15:54 | NUR ---
WOUND PHOTO AND ASSESSMENT IN [facility], WOUND CARE ORDERS IN [facility].
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
[2022-01-29 17:29] LABS: Base Excess Venous 1.8 mmol/L; Bicarbonate Venous 25.5 mmol/L (24.0-30.0); PCO2 Venous 49.8 mmHg (38-42); PO2 Venous 74.8 mmHg (38-42); pH Blood Venous 7.35 (7.34-7.37)
--- NOTE | 2022-01-29 17:38 | NUR ---
SHIFT SUMMARY PT ALERT AND ORIENTED X 4. HE HAS BEEN PLEASANT AND COOPERATIVE WITH CARE. SPO2 HAS BEEN 85-93% VIA 2-4 L VIA NC. PT DESATS W/ EXERTION TO 85-87%. HE HAS CONTINUED TO DENY FEELINGS OF CHEST PAIN/PRESSURE, BP STABLE. TELE MONITORING IN PLACE, HR DUEL PACED PER TELE REPORT. IV IN RIGHT BRACHIAL IS SALINE LOCKED. HE HAS DENIED FEELINGS OF PAIN IN SHOULDER/BACK. REPOSITIONING WITH PILLOWS UNDER HIPS TO ALLEVIATE PRESSURE ON BOTTOM OFFERED DURING SHIFT BUT PT DENIED. WOUND CONSULT TOOK PLACE, SEE PREVIOUS NOTES/ORDERS. SKIN ON BOTTOM REMAINS RED BUT SKIN IS DRY/CLEAN/INTACT. HE HAS BEEN ABLE TO STAND AT BEDSIDE WITH 1 PERSON ASSIST AND WALKER TO UTILIZE URINAL. PULM CONSULT TOOK PLACE TODAY, DR. COLEMAN AT BEDSIDE. ACHS MONITORING PER EMAR ORDERS. NO OTHER ACUTE CHANGES NOTED, WILL CONTINUE TO MONITOR UNTIL REPORT GIVEN. CALL LIGHT IN REACH.
--- NOTE | 2022-01-29 18:39 | NUR ---
AMBULATED TO BEDSIDE COMMODE, NO BM, DENIED ABD PAIN.
[2022-01-30 03:59] LABS: Base Excess Venous 3.3 mmol/L; Bicarbonate Venous 26.8 mmol/L (24.0-30.0); PCO2 Venous 48.2 mmHg (38-42); PO2 Venous 69.3 mmHg (38-42); pH Blood Venous 7.38 (7.34-7.37)
--- NOTE | 2022-01-30 05:28 | NUR ---
SHIFT SUMMARY NO ACUTE CHANGES THIS SHIFT. PT A&OX4, PLEASANT. SP02>92 %ON 3L NC. PT WORE BIPAP DURING NOC, WITH A 30 MIN BREAK AT 3 AM. PT REPORTS PRODUCTIVE COUGH W/ GREEN SPUTUM. TELEMETRY REMAINED PACED, HR PRIMARILY 80'S. PT USED URINAL STANDING AT BEDSIDE. ATTEMPTED BM ON BSC BUT PRODUCED GAS. REPOSITIONED IN BED. PT OPTED TO KEEP PROSTHETIC ON T/O NIGHT D/T GETTING UP OFTEN TO VOID. PT SLEPT OFF AND ON T/O NIGHT. CALL LIGHT IN REACH.
--- NOTE | 2022-01-30 09:57 | NUR ---
AM NOTE... ASSUMED CARE OF PT AT 0700, THE PT IS A&Ox4 AND SBA W/FWW. THE PT'S VS ARE STABLE THIS AM, THE PT IS PACED IN THE 70'S-80'S, THE PT HAS 1+ EDEMA TO HIS RLE AND TRACE EDEMA NOTED TO HIS BUE. THE PT IS ON 3L NC WITH O2 SATS >90% THE PT'S BASELINE O2 USE IS 2-4L PRN AT HOME. L/S DIM T/O. BT PRESENT AND HYPOACTIVE, ABD HAS A MODERATE DISTENTION AND IS FIRM TO PALPATION. THE PT C/O OF NOT HAVING A BM FOR 7 DAYS, BOWEL CARE STARTED AND PROVIDER AWARE. PLAN IS TO D/C THE PT HOME ONCE HE HAS HAD A BM. WILL CONTINUE TO MONITOR.
[2022-01-30] MEDS ORDERED: ALBU90OI INH (12:49)
[2022-01-30] MEDS ORDERED: AZIT500 PO (12:50)
[2022-01-30] MEDS ORDERED: INSULANI (12:50)
--- NOTE | 2022-01-30 17:30 | NUR ---
SHIFT SUMMARY... NO ACUTE NEGATIVE CHANGES NOTED THIS SHIFT. THE PT IS TO D/C HOME WITH HIS ONCE SHE ARRIVED. THE PT'S VS STABLE T/O THIS SHIFT. DISCHARGE EDUCATION PROVIDED TO THE PT. PT VERBALIZED HIS UNDERSTANDING.
== END 2022-01-30 19:01 | disposition home or self-care (01) | DRG 871 ==
LOC: ER 10:48 → PCU 17:37
PROVIDERS: Emergency Medicine; Internal Medicine; Nurse Practitioner Acute Care; ADMIT Internal Medicine
PROC: 5A09457 Assistance with Respiratory Ventilation, 24-96 Consecutive Hours, Continuous Positive Airway Pressure (ICD-10-PCS; principal; 2022-01-26)
DX: A41.9 Sepsis, unspecified organism (principal); J18.9 Pneumonia, unspecified organism; J96.21 Acute and chronic respiratory failure with hypoxia; J96.22 Acute and chronic respiratory failure with hypercapnia; J44.0 Chronic obstructive pulmonary disease with (acute) lower respiratory infection; I13.0 Hypertensive heart and chronic kidney disease with heart failure and stage 1 through stage 4 chronic kidney disease, or unspecified chronic kidney disease; I48.19 Other persistent atrial fibrillation; N17.9 Acute kidney failure, unspecified; I50.42 Chronic combined systolic (congestive) and diastolic (congestive) heart failure; G93.40 Encephalopathy, unspecified; E87.2 Acidosis; Z20.822 Contact with and (suspected) exposure to COVID-19; N18.30 Chronic kidney disease, stage 3 unspecified; K56.41 Fecal impaction; T40.605A Adverse effect of unspecified narcotics, initial encounter; G47.33 Obstructive sleep apnea (adult) (pediatric); E66.01 Morbid (severe) obesity due to excess calories; I95.9 Hypotension, unspecified; E11.22 Type 2 diabetes mellitus with diabetic chronic kidney disease; I25.10 Atherosclerotic heart disease of native coronary artery without angina pectoris; J45.909 Unspecified asthma, uncomplicated; Z68.39 Body mass index [BMI] 39.0-39.9, adult; Z99.81 Dependence on supplemental oxygen; Z95.0 Presence of cardiac pacemaker; Z87.891 Personal history of nicotine dependence; Z79.890 Hormone replacement therapy; Z89.512 Acquired absence of left leg below knee; Z89.411 Acquired absence of right great toe; Z95.1 Presence of aortocoronary bypass graft; Z88.1 Allergy status to other antibiotic agents; Z88.5 Allergy status to narcotic agent; Z88.8 Allergy status to other drugs, medicaments and biological substances; Z79.899 Other long term (current) drug therapy
CPT/HCPCS: 0241U; 36415; 36600; 51701; 70450; 71045; 80048; 80053; 81001; 82803; 82947; 83605; 83735; 83880; 84145; 84484; 85014; 85018; 85025; 85027; 87040; 87086; 87449; 93005; 93010; 94640; 94660; 94664; 94760; 94762; 96365-59; 96375-59; 97110; 97116; 97161; 97530; 99285-25; A9270; J0456; J0696; J1815; J2930; J3010; J7030; J7050

== ENCOUNTER 2022-02-05 13:44 | Emergency (ER) | payer OTHER ==
[~2022-02-05] VITALS: Ht 188 cm; Wt 136.1 kg
[~2022-02-05 13:44] MED LIST changes: +ALBU90OI INH; +ALEN70 PO; +AZIT500 PO; +INSULANI; +LEVOTHYROXINE150 MC7 PO; +NEURONTIN300 MG PO
[2022-02-05 14:23] LABS: BASOPHILS ABSOLUTE AUTO 0.03 K/mm3 (0.00-0.23); BASOPHILS PERCENT AUTO 0 % (0-2); EOSINOPHILS ABSOLUTE AUTO 0.09 K/mm3 (0.00-0.68); EOSINOPHILS PERCENT AUTO 1 % (0-6); Hemoglobin 12.1 g/dL (13.5-17.5); IMMATURE GRAN PERCENT AUTO 1 % (0-1); LYMPHOCYTES ABSOLUTE AUTO 0.47 K/mm3 (0.84-5.20); LYMPHOCYTES PERCENT AUTO 5 % (21-46); MONOCYTES ABSOLUTE AUTO 0.68 K/mm3 (0.16-1.47); MONOCYTES PERCENT AUTO 6 % (4-13); Mean Corpuscular HGB 26.5 pg (26.0-34.0); Mean Corpuscular HGB Conc 28.8 g/dL (31.5-36.5); Mean Corpuscular Volume 92 fL (80-100); Mean Platelet Volume 10.6 fL (9.1-12.4); NEUTROPHILS ABSOLUTE AUTO 9.18 K/mm3 (1.96-9.15); NEUTROPHILS PERCENT AUTO 87 % (41-73); Platelet Count 227 K/mm3 (150-400); RDW Coefficient Variation 17.2 % (11.7-14.2); RDW Standard Deviation 57.1 fL (35.1-46.3); Red Blood Cell Count 4.57 M/mm3 (4.30-5.90); White Blood Cell Count 10.55 K/mm3 (4.00-11.30)
[2022-02-05 14:50] LABS: Albumin, Blood 2.5 g/dL (3.4-5.0); Albumin/Globulin Ratio 0.6 (0.8-1.8); Bilirubin, Total 0.9 mg/dL (0.1-1.0); Bun/Creatinine Ratio 27.6 (12.0-20.0); Calcium, Blood 9.4 mg/dL (8.5-10.1); Creatinine, Blood 1.45 mg/dL (0.60-1.20); Globulin, Blood 4.3 g/dL (2.2-4.0); Potassium, Blood 3.6 mmol/L (3.5-5.5); Total Protein, Blood 6.8 g/dL (6.4-8.2)
[2022-02-05 22:58] LABS: Source, Urine Clean Catch
[2022-02-05 23:08] LABS: Bilirubin, Urine Neg (Neg); Blood, Urine 2+ (Neg); Glucose Qualitative, Urine 3+ (Neg); Ketones, Urine 1+ (Neg); Leukocyte Esterase, Urine Neg (Neg); Nitrite, Urine Neg (Neg); Protein, Urine 2+ (Neg); Urobilinogen, Urine NORM (Normal)
[2022-02-05 23:37] LABS: Appearance, Urine Hazy (Clear); Color, Urine Yellow (P-Yellow)
[2022-02-05 23:54] LABS: Bacteria Few /hpf; Squamous Epithelial Cells Few /hpf (Few)
[2022-02-06] MEDS ORDERED: METO10 PO (02:14)
== END 2022-02-06 03:10 | disposition home or self-care (01) ==
LOC: ER 13:44
PROVIDERS: Physician Assistant; Student in an Organized Health Care Education/Training Program
DX: R11.2 Nausea with vomiting, unspecified (principal); E86.0 Dehydration; J96.11 Chronic respiratory failure with hypoxia; J44.9 Chronic obstructive pulmonary disease, unspecified; I25.10 Atherosclerotic heart disease of native coronary artery without angina pectoris; E66.01 Morbid (severe) obesity due to excess calories; I13.0 Hypertensive heart and chronic kidney disease with heart failure and stage 1 through stage 4 chronic kidney disease, or unspecified chronic kidney disease; E11.22 Type 2 diabetes mellitus with diabetic chronic kidney disease; N18.30 Chronic kidney disease, stage 3 unspecified; I50.22 Chronic systolic (congestive) heart failure; N13.2 Hydronephrosis with renal and ureteral calculous obstruction; K57.30 Diverticulosis of large intestine without perforation or abscess without bleeding; Z88.5 Allergy status to narcotic agent; Z88.8 Allergy status to other drugs, medicaments and biological substances; Z79.899 Other long term (current) drug therapy; Z79.4 Long term (current) use of insulin; Z89.512 Acquired absence of left leg below knee; Z89.411 Acquired absence of right great toe; Z95.810 Presence of automatic (implantable) cardiac defibrillator; Z95.1 Presence of aortocoronary bypass graft; Z87.891 Personal history of nicotine dependence; Z99.81 Dependence on supplemental oxygen; Z79.01 Long term (current) use of anticoagulants
CPT/HCPCS: 36415; 74177; 80053; 81001; 83690; 83880; 84484; 85025; 93005; 93010; J2765; J7030; Q9967

== ENCOUNTER 2022-03-04 11:40 | Emergency (ER) | payer OTHER ==
[~2022-03-04] VITALS: Ht 188 cm; Wt 134.7 kg
[~2022-03-04 11:40] MED LIST changes: +METO10 PO
[2022-03-04] MEDS ORDERED: CITALOPRAM HBR10 MG PO (12:23)
[2022-03-04 13:52] LABS: BASOPHILS ABSOLUTE AUTO 0.04 K/mm3 (0.00-0.23); BASOPHILS PERCENT AUTO 0 % (0-2); EOSINOPHILS ABSOLUTE AUTO 0.16 K/mm3 (0.00-0.68); EOSINOPHILS PERCENT AUTO 2 % (0-6); Hematocrit 33.6 % (37.0-53.0); Hemoglobin 10.1 g/dL (13.5-17.5); IMMATURE GRAN ABSOLUTE AUTO 0.04 K/mm3 (0.00-0.10); IMMATURE GRAN PERCENT AUTO 0 % (0-1); LYMPHOCYTES ABSOLUTE AUTO 0.98 K/mm3 (0.84-5.20); LYMPHOCYTES PERCENT AUTO 10 % (21-46); MONOCYTES ABSOLUTE AUTO 0.83 K/mm3 (0.16-1.47); MONOCYTES PERCENT AUTO 9 % (4-13); Mean Corpuscular HGB 26.6 pg (26.0-34.0); Mean Corpuscular HGB Conc 30.1 g/dL (31.5-36.5); Mean Corpuscular Volume 89 fL (80-100); Mean Platelet Volume 10.4 fL (9.1-12.4); NEUTROPHILS ABSOLUTE AUTO 7.43 K/mm3 (1.96-9.15); NEUTROPHILS PERCENT AUTO 78 % (41-73); Platelet Count 212 K/mm3 (150-400); RDW Coefficient Variation 18.8 % (11.7-14.2); RDW Standard Deviation 60.3 fL (35.1-46.3); Red Blood Cell Count 3.79 M/mm3 (4.30-5.90); White Blood Cell Count 9.48 K/mm3 (4.00-11.30)
[2022-03-04 14:09] LABS: Albumin, Blood 2.5 g/dL (3.4-5.0); Albumin/Globulin Ratio 0.6 (0.8-1.8); Bilirubin, Total 0.6 mg/dL (0.1-1.0); Bun/Creatinine Ratio 17.8 (12.0-20.0); Calcium, Blood 8.8 mg/dL (8.5-10.1); Creatinine, Blood 3.14 mg/dL (0.60-1.20); Potassium, Blood 4.3 mmol/L (3.5-5.5); Total Protein, Blood 6.5 g/dL (6.4-8.2)
[2022-03-04] MEDS ORDERED: OXAYDO5 M1 PO (16:17)
== END 2022-03-04 16:50 | disposition home or self-care (01) ==
LOC: ER 11:40
PROVIDERS: Emergency Medicine
DX: S32.502A Unspecified fracture of left pubis, initial encounter for closed fracture (principal); W18.30XA Fall on same level, unspecified, initial encounter; I13.0 Hypertensive heart and chronic kidney disease with heart failure and stage 1 through stage 4 chronic kidney disease, or unspecified chronic kidney disease; E11.22 Type 2 diabetes mellitus with diabetic chronic kidney disease; N18.30 Chronic kidney disease, stage 3 unspecified; I50.22 Chronic systolic (congestive) heart failure; J44.9 Chronic obstructive pulmonary disease, unspecified; I25.10 Atherosclerotic heart disease of native coronary artery without angina pectoris; E66.01 Morbid (severe) obesity due to excess calories; Z68.38 Body mass index [BMI] 38.0-38.9, adult; Z88.6 Allergy status to analgesic agent; Z88.5 Allergy status to narcotic agent; Z88.1 Allergy status to other antibiotic agents; Z79.899 Other long term (current) drug therapy; Z79.4 Long term (current) use of insulin; Z95.810 Presence of automatic (implantable) cardiac defibrillator; Z95.1 Presence of aortocoronary bypass graft; Z95.5 Presence of coronary angioplasty implant and graft; Z99.81 Dependence on supplemental oxygen
CPT/HCPCS: 36415; 71045; 73502; 73700; 80053; 84484; 85025; A9270

== ENCOUNTER 2022-03-07 22:35 | Inpatient (IN) | payer OTHER ==
[~2022-03-07] VITALS: Ht 188 cm; Wt 132.9 kg
[~2022-03-07 22:35] MED LIST changes: +CITALOPRAM HBR10 MG PO; +OXAYDO5 M1 PO
[2022-03-08] MEDS ORDERED: AMOCLA875 PO (00:03)
[2022-03-08] MEDS ORDERED: Vibramycin100 MG PO (00:03)
[2022-03-08 06:42] LABS: BASOPHILS ABSOLUTE AUTO 0.04 K/mm3 (0.00-0.23); BASOPHILS PERCENT AUTO 0 % (0-2); EOSINOPHILS ABSOLUTE AUTO 0.05 K/mm3 (0.00-0.68); EOSINOPHILS PERCENT AUTO 0 % (0-6); Hematocrit 38.1 % (37.0-53.0); Hemoglobin 10.9 g/dL (13.5-17.5); IMMATURE GRAN ABSOLUTE AUTO 0.32 K/mm3 (0.00-0.10); IMMATURE GRAN PERCENT AUTO 3 % (0-1); LYMPHOCYTES ABSOLUTE AUTO 0.59 K/mm3 (0.84-5.20); LYMPHOCYTES PERCENT AUTO 5 % (21-46); MONOCYTES ABSOLUTE AUTO 0.81 K/mm3 (0.16-1.47); MONOCYTES PERCENT AUTO 7 % (4-13); Mean Corpuscular HGB 26.6 pg (26.0-34.0); Mean Corpuscular HGB Conc 28.6 g/dL (31.5-36.5); Mean Corpuscular Volume 93 fL (80-100); Mean Platelet Volume 10.3 fL (9.1-12.4); NEUTROPHILS ABSOLUTE AUTO 9.73 K/mm3 (1.96-9.15); NEUTROPHILS PERCENT AUTO 84 % (41-73); Platelet Count 322 K/mm3 (150-400); RDW Coefficient Variation 18.7 % (11.7-14.2); RDW Standard Deviation 63.2 fL (35.1-46.3); White Blood Cell Count 11.54 K/mm3 (4.00-11.30)
--- NOTE | 2022-03-08 06:57 | NUR ---
transfer report from [facility] ELECTROLYSIS NEEDLE OPERATOR on 67 year old MAle full code with multiple medical problems reported CABG Pacemaker AICD ronna to severe cardiomed , falls with pelvic fracture encephalopathy obesity CHF CopD o2 dep HX Afib PATRICIA on CPAP CKD falls with rib injuries & acute resp failure with hypoxia. Vargas cath inserted in ER for acute urinary retention, 1100 ml. Await admission of complex PT to medical floor.
[2022-03-08 07:01] LABS: Albumin, Blood 2.8 g/dL (3.4-5.0); Albumin/Globulin Ratio 0.6 (0.8-1.8); Bilirubin, Total 0.5 mg/dL (0.1-1.0); Bun/Creatinine Ratio 21.2 (12.0-20.0); Calcium, Blood 8.7 mg/dL (8.5-10.1); Creatinine, Blood 3.35 mg/dL (0.60-1.20); Globulin, Blood 4.5 g/dL (2.2-4.0); Potassium, Blood 5.7 mmol/L (3.5-5.5); Total Protein, Blood 7.3 g/dL (6.4-8.2)
[2022-03-08 07:21] LABS: Source, Urine Straight Cath
[2022-03-08 07:30] LABS: Appearance, Urine Clear (Clear); Bilirubin, Urine Neg (Neg); Blood, Urine Neg (Neg); Color, Urine Yellow (P-Yellow); Glucose Qualitative, Urine 3+ (Neg); Ketones, Urine Neg (Neg); Leukocyte Esterase, Urine Neg (Neg); Nitrite, Urine Neg (Neg); Protein, Urine Neg (Neg); Specific Gravity, Urine 1.015 (1.003-1.022); Urobilinogen, Urine NORM (Normal)
[2022-03-08 08:04] LABS: Influenza A, PCR NEGATIVE (NEGATIVE); Influenza B, PCR NEGATIVE (NEGATIVE); Resp Syncytial Virus, PCR NEGATIVE (NEGATIVE); SARS-Cov-2 (COVID-19) PCR, MMC NEGATIVE (NEGATIVE)
[2022-03-08 10:47] LABS: U Amphetamine Screen Not Detected; U Barbituate Screen Not Detected; U Benzodiazapine Screen Not Detected; U Cannabinoids Screen Not Detected; U Cocaine Screen Not Detected; U Methadone Screen Not Detected; U Methamphetamine Screen Not Detected; U Opiates Screen DETECTED; U Phencyclidine Screen Not Detected
[2022-03-08 10:48] LABS: U Buprenorphine Screen Not Detected; U Oxycodone Screen DETECTED; U Propoxyphene Screen Not Detected
[2022-03-08 17:25] LABS: Bun/Creatinine Ratio 21.6 (12.0-20.0); Calcium, Blood 8.5 mg/dL (8.5-10.1); Creatinine, Blood 3.42 mg/dL (0.60-1.20); Potassium, Blood 5.3 mmol/L (3.5-5.5)
--- NOTE | 2022-03-09 05:18 | NUR ---
SHIFT SUMMARY: PT IS A/OX0. HE IS AROUSABLE TO VOICE, BUT HAS NONSENSICAL RESPONSES. AT TIMES HE CAN RESPOND WITH ONE WORD ANSWERS. HE IS ON 3L OF O2; HIS BASELINE IS 4L. TELE MONITOR INFORMED THE RN THAT HIS PACER WAS NOT CAPTURING. THE NOC RN WILL PASS THIS ALONG TO THE DAYSHIFT RN. THE PT'S STORY IS PATENT. D/T THE HIS SOMNOLENCE, THE PT WAS TURNED TO PREVENT SKIN BREAKDOWN. THE BED IS IN THE LOWEST POSITION AND THE ALARM IS SET FOR SAFETY. WE'LL CONTINUE TO MONITOR.
[2022-03-09 05:27] LABS: BASOPHILS ABSOLUTE AUTO 0.04 K/mm3 (0.00-0.23); BASOPHILS PERCENT AUTO 0 % (0-2); EOSINOPHILS ABSOLUTE AUTO 0.06 K/mm3 (0.00-0.68); EOSINOPHILS PERCENT AUTO 1 % (0-6); Hematocrit 34.1 % (37.0-53.0); Hemoglobin 9.7 g/dL (13.5-17.5); IMMATURE GRAN ABSOLUTE AUTO 0.19 K/mm3 (0.00-0.10); IMMATURE GRAN PERCENT AUTO 2 % (0-1); LYMPHOCYTES ABSOLUTE AUTO 0.88 K/mm3 (0.84-5.20); LYMPHOCYTES PERCENT AUTO 9 % (21-46); MONOCYTES ABSOLUTE AUTO 1.03 K/mm3 (0.16-1.47); MONOCYTES PERCENT AUTO 11 % (4-13); Mean Corpuscular HGB 26.4 pg (26.0-34.0); Mean Corpuscular HGB Conc 28.4 g/dL (31.5-36.5); Mean Corpuscular Volume 93 fL (80-100); NEUTROPHILS ABSOLUTE AUTO 7.12 K/mm3 (1.96-9.15); NEUTROPHILS PERCENT AUTO 77 % (41-73); Platelet Count 251 K/mm3 (150-400); RDW Coefficient Variation 18.9 % (11.7-14.2); RDW Standard Deviation 63.7 fL (35.1-46.3); Red Blood Cell Count 3.68 M/mm3 (4.30-5.90); White Blood Cell Count 9.32 K/mm3 (4.00-11.30)
[2022-03-09 06:04] LABS: Albumin, Blood 2.4 g/dL (3.4-5.0); Albumin/Globulin Ratio 0.6 (0.8-1.8); Bilirubin, Total 0.4 mg/dL (0.1-1.0); Bun/Creatinine Ratio 21.3 (12.0-20.0); Calcium, Blood 8.4 mg/dL (8.5-10.1); Creatinine, Blood 3.29 mg/dL (0.60-1.20); Potassium, Blood 5.1 mmol/L (3.5-5.5); Total Protein, Blood 6.4 g/dL (6.4-8.2)
--- NOTE | 2022-03-09 11:41 | NUR ---
AT START OF SHIFT PATIENT WAS ASLEEP BUT WOULD OPEN EYES AND RESPOND TO QUESTIONS WITH SHORT ONE WORDED ANSWERS. HE APPEARD TO HAVE MUSCLE JERKS AND APPEARD RESTLESS. PROVIDER ASSESSED AND WROTE NEW ORDERS, INCLUDING TO INTEROGATE PACER WHICH WAS THOUGHT TO BE NOT WORKING CORRECTLY. PATIENT RECIEVED AZITHROMYCIN IV, AND ROCEPHIN IV. A BAG OF LR WAS HUNG AND RUNNING AT 200ML/HR. PATIENT CONTINUED TO HAVE MUSCLE JERKS AT TIMES, AND DID NOT INTERACT MUCH. HE WASN'T ABLE TO SPECIFY HIS BIRTHDAY. AT TIMES WHEN QUESTIONS WERE ASKED, HE WOULD JUST SMILE. THIS EMERGENCY MEDICINE PHYSICIAN ASSISTANT WAS IN ANOTHER PATIENT ROOM WHEN RESEARCH QUALITY ASSURANCE ANALYST CALLED AND STATED THAT THE TELE APPEARED TO BE ASYSTOLE. IMMEDIATELY WENT TO PATIENT AND FOUND HIM LYING WITH EYES HALF OPEN UNRESPONSIVE. A PULSE CHECK WAS ZERO. CHARGE NURSE ABHI IN [facility] CAME IN AND CALLED CODE. CPR STARTED AT 1047. FIRST CODE ENDED AT 1100. PATIENT CODED A SECOND TIME AT 1105 AND ENDED 1118. HE WAS TRANSFERED TO ICU.
--- NOTE | 2022-03-09 13:01 | NUR ---
DISCHARGE: Pt arrived to ICU with CPR in progress. Please see code sheet for documentation. [facility] called at [address] Tesfaye. [facility] called; H&P, three most recent progress reports, and labs faxed per their request. [facility] called per family request. Pt taken by home staff at 1301. Belongings sent home with pt's family. Glasses and upper dentures remained in room after family left, so they were sent to home with patient.
--- NOTE | 2022-03-09 13:21 | NUR ---
Spiritual Care - Code Blue Call Pt. is receiving compressions from the Code staff in his original room. During the process, Dr. Saeed contacted the SO. SO was coming into the hospital. Pt. was being prepped to move to ICU when he coded a second time. This management internship met the spouse when she arrived before Dr. Saeed consulted with her. Pt. is tranferred to ICU-6 where he coded a third time. SO is present and requests that compressions be stopped. Soon after the Pt. passed EOL prayers were given, and pastoral care is given the SO with a calming presence. The Pts. son arrived, and given the option, decided he wanted to see his father one last. time. Stayed with SO and son, until they departed ICU. This management internship walked them to the south entrance where they departed. SO and son verbalized gratitude for the care of every department. ICU Charge nurse recommended this management internship follow up with [facility] staff who had been on scene of the Code Blue as there was evidence that they were unsettled by the passing of the Pt. COnfirmed with Dr. Saeed that a debrief had already taken place, and provided him with a "Critical Incident Debried" card. verbalized gratitude for the resource.
== END 2022-03-09 11:41 | DRG 177 ==
LOC: ER 22:35 → MEDS 03-08 05:41 → ICUE 03-09 11:24
PROVIDERS: Family Medicine; Hospitalist; Student in an Organized Health Care Education/Training Program; ADMIT Internal Medicine
PROC: 3E03329 Introduction of Other Anti-infective into Peripheral Vein, Percutaneous Approach (ICD-10-PCS; principal; 2022-03-08)
PROC: 5A12012 Performance of Cardiac Output, Single, Manual (ICD-10-PCS; 2022-03-09)
DX: J69.0 Pneumonitis due to inhalation of food and vomit (principal); G92.8 Other toxic encephalopathy; J96.21 Acute and chronic respiratory failure with hypoxia; N17.9 Acute kidney failure, unspecified; I50.42 Chronic combined systolic (congestive) and diastolic (congestive) heart failure; I13.0 Hypertensive heart and chronic kidney disease with heart failure and stage 1 through stage 4 chronic kidney disease, or unspecified chronic kidney disease; T82.119A Breakdown (mechanical) of unspecified cardiac electronic device, initial encounter; I48.19 Other persistent atrial fibrillation; I47.2 Ventricular tachycardia; I25.10 Atherosclerotic heart disease of native coronary artery without angina pectoris; T40.605A Adverse effect of unspecified narcotics, initial encounter; Z51.5 Encounter for palliative care; J44.9 Chronic obstructive pulmonary disease, unspecified; E11.22 Type 2 diabetes mellitus with diabetic chronic kidney disease; I46.2 Cardiac arrest due to underlying cardiac condition; E87.5 Hyperkalemia; E03.9 Hypothyroidism, unspecified; G47.33 Obstructive sleep apnea (adult) (pediatric); N18.30 Chronic kidney disease, stage 3 unspecified; S20.211A Contusion of right front wall of thorax, initial encounter; W05.0XXA Fall from non-moving wheelchair, initial encounter; E66.01 Morbid (severe) obesity due to excess calories; K25.9 Gastric ulcer, unspecified as acute or chronic, without hemorrhage or perforation; Z20.822 Contact with and (suspected) exposure to COVID-19; Z89.512 Acquired absence of left leg below knee; Z79.4 Long term (current) use of insulin; Z98.890 Other specified postprocedural states; Z89.411 Acquired absence of right great toe; Z95.810 Presence of automatic (implantable) cardiac defibrillator; Z95.1 Presence of aortocoronary bypass graft; Z88.1 Allergy status to other antibiotic agents; Z88.8 Allergy status to other drugs, medicaments and biological substances; Z88.5 Allergy status to narcotic agent; Z79.51 Long term (current) use of inhaled steroids; Z79.01 Long term (current) use of anticoagulants; Z79.02 Long term (current) use of antithrombotics/antiplatelets; Z79.899 Other long term (current) drug therapy; E66.9 Obesity, unspecified; Z68.38 Body mass index [BMI] 38.0-38.9, adult
CPT/HCPCS: 0241U; 31500; 36415; 51702; 70450; 71045; 80048; 80053; 81003; 82947; 83605; 83880; 84145; 85025; 87040; 92610; 92950; 96374; 96375; 99285-25; A9270; J0456; J0696; J1265; J1650; J2310; J7030; J7050; J7120